=== PATIENT | male | born 1995 | race Caucasian/White ===

== ENCOUNTER 2017-05-04 13:31 | Emergency (ER) | payer SELFPAY ==
[2017-05-04 14:17] LABS: BASOPHILS 0.6 % (0-2); EOSINOPHILS 2.8 % (0-7); HEMATOCRIT 40.4 % (42.0-54.0); HEMOGLOBIN 13.6 g/dL (13.5-17.5); IMMATURE GRANULOCYTES 0.2 % (0-5); LYMPHOCYTES 35.2 % (15-50); MCHC 33.7 g/dL (31.0-37.0); MEAN PLATELET VOLUME 8.9 fL (7.4-10.4); NEUTROPHILS 54.2 % (40-80); PLATELET COUNT 242 10x3/uL (130-400); RBC 4.54 10x6/uL (4.20-6.10); RDW 13.4 % (11.5-14.5); WBC 6.3 10x3/uL (4.8-10.8)
[2017-05-04 14:22] LABS: UDS - AMPHET POSITIVE QUAL (NEGATIVE); UDS - BARB NEGATIVE QUAL (NEGATIVE); UDS - BENZO NEGATIVE QUAL (NEGATIVE); UDS - COCAINE NEGATIVE QUAL (NEGATIVE); UDS - METH NEGATIVE QUAL (NEGATIVE); UDS - OPIATE NEGATIVE QUAL (NEGATIVE); UDS - PCP NEGATIVE QUAL (NEGATIVE); UDS - THC POSITIVE QUAL (NEGATIVE)
[2017-05-04 14:23] LABS: APPEARANCE CLEAR (CLEAR); BILIRUBIN NEGATIVE (NEGATIVE); COLOR YELLOW (YELLOW); GLUCOSE NEGATIVE (NEGATIVE); KETONE NEGATIVE (NEGATIVE); LEUKOCYTE ESTERASE NEGATIVE (NEGATIVE); NITRITE NEGATIVE (NEGATIVE); PROTEIN NEGATIVE (NEGATIVE); UROBILINOGEN NORMAL (NORMAL)
[2017-05-04 15:27] LABS: CALC OSMOLALITY 282 mosm/kg (275-300); CARBON DIOXIDE 31.6 mmol/L (21.0-32.0); CHLORIDE - SERUM 102 mmol/L (98-107); CREATININE - SERUM 0.9 mg/dL (0.6-1.3); GLUCOSE 115 mg/dL (74-106); POTASSIUM - SERUM 3.7 mmol/L (3.5-5.1); SODIUM 141 mmol/L (136-145); UREA NITROGEN 14 mg/dL (7-18); eGFR NON AFRICAN AMERICAN > 90 mL/min (90-120)
[2017-05-04 15:28] LABS: ALBUMIN 3.6 g/dL (3.4-5.0); ALKALINE PHOSPHATASE 64 U/L (46-116); ALT (SGPT) 18 U/L (10-68); BILIRUBIN - TOTAL 0.51 mg/dL (0.2-1.3); PROTEIN - SERUM 6.8 g/dL (6.4-8.2)
== END 2017-05-04 16:54 | disposition home or self-care (01) ==
LOC: D.ER 13:31
PROVIDERS: Emergency Medicine
DX: F15.10 Other stimulant abuse, uncomplicated (principal); F12.10 Cannabis abuse, uncomplicated; F13.10 Sedative, hypnotic or anxiolytic abuse, uncomplicated; F19.10 Other psychoactive substance abuse, uncomplicated; F17.200 Nicotine dependence, unspecified, uncomplicated

== ENCOUNTER 2019-05-26 20:59 | Emergency (ER) | payer SELFPAY ==
[~2019-05-26] VITALS: Ht 177.8 cm; Wt 63.6 kg
[2019-05-26 21:03] VITALS: Ht 177.8 cm; Wt 63.6 kg
[2019-05-26] MEDS ORDERED: TORADOL10 MG PO (22:04)
[2019-05-26] MEDS ORDERED: KEFLEX500 MG PO (22:04)
[2019-05-26 22:15] VITALS: BP 142/84
== END 2019-05-26 22:18 | disposition home or self-care (01) ==
LOC: D.ER 20:59
DX: S61.511A Laceration without foreign body of right wrist, initial encounter (principal); W26.8XXA Contact with other sharp object(s), not elsewhere classified, initial encounter; Y93.89 Activity, other specified; Y92.89 Other specified places as the place of occurrence of the external cause

== ENCOUNTER 2020-05-28 15:10 | Emergency (ER) | payer SELFPAY ==
[~2020-05-28] VITALS: Ht 177.8 cm; Wt 65.8 kg
[~2020-05-28 15:10] MED LIST: KEFLEX500 MG PO; TORADOL10 MG PO
[2020-05-28 15:17] VITALS: Ht 177.8 cm; Wt 65.8 kg
[2020-05-28] MEDS ORDERED: CLEOCIN HCL300 MG PO (18:48)
[2020-05-28] MEDS ORDERED: KEFLEX500 MG PO (18:48)
[2020-05-28 19:03] VITALS: BP 120/69
== END 2020-05-28 19:04 | disposition home or self-care (01) ==
LOC: D.ER 15:10
DX: L02.413 Cutaneous abscess of right upper limb (principal); L03.116 Cellulitis of left lower limb